=== PATIENT | male | born 1975 ===

== ENCOUNTER → 2020-10-11 14:06 | Outpatient (CLI) | payer BC, SELFPAY ==
--- NOTE | ~2020-10-11 | XR_ITS ---
EXAMINATION: XR lumbar spine 2-3V DATE: 10/11/2020 14:29 INDICATION: Right back pain TECHNIQUE: Anteroposterior and lateral views of the lumbar spine, and cone-down lateral view of the l umbosacral junction were obtained. COMPARISON: None. FINDINGS: Bone alignment is normal. There is no fracture. There is mild loss of intervertebral disc s pace height at L1-2 and L5-S1. The vertebral body heights are maintained. Small degenerative osteophy braeden project from the anterior endplates of multiple vertebral bodies. IMPRESSION: 1. Mild lumbar spondylosis without acute findings. Reviewed, dictated and finalized at location A. OR MASTER SCHEDULER
--- NOTE | ~2020-10-11 | XR_ITS ---
EXAMINATION: XR thoracic spine 3V DATE: 10/11/2020 14:29 INDICATION: Right-sided lower thoracic back pain TECHNIQUE: One AP, lateral and lateral swimmer's views of the thoracic spine were obtained. COMPARISON: None. FINDINGS: 15 degree levoscoliosis measured between T1 and T6. Minimal anterior wedging with <20% anterior verte bral body height loss at T8, T9 and T11. No evident sharply angulated cortex or linear lucency or scl erosis to suggest acute fracture. Multilevel mild to moderate disc height loss throughout the thoraci c spine, greatest at T7-T8. Lung volumes are small. Visualized lungs appear clear with no evident ple ural effusion or pneumothorax. Heart size is normal. IMPRESSION: 1. Mild upper thoracic levoscoliosis with mild to moderate spondylosis. 2. Age indeterminate, most likely chronic mild anterior wedging of a few lower thoracic vertebral bod ies. Reviewed, dictated and finalized at location A. UTER EQUIPMENT INSTALLER IMPRESSION: 1. Mild upper thoracic levoscoliosis with mild to moderate spondylosis. 2. Age indeterminate, most likely chronic mild anterior wedging of a few lower thoracic vertebral bodies.
== END ==
PROVIDERS: PCP Family Medicine Adolescent Medicine; Visit Provider Family Medicine Adolescent Medicine
DX: M54.6 Pain in thoracic spine (principal); M47.896 Other spondylosis, lumbar region
CPT/HCPCS: 72072; 72100

== ENCOUNTER → 2020-12-14 10:24 | Outpatient (CLI) | payer BC, SELFPAY ==
[2020-12-14 18:26] LABS: SARS-CoV-2 RNA PCR Positive
== END ==
PROVIDERS: PCP Family Medicine Adolescent Medicine; Visit Provider Family Medicine Adolescent Medicine
DX: U07.1 COVID-19 (principal)
CPT/HCPCS: C9803; U0003; U0005

== ENCOUNTER 2022-11-26 07:49 | Outpatient (CLI) | payer BC, SELFPAY ==
--- NOTE | 2022-11-26 08:32 | ECG_ITS ---
Measurements Intervals [place] Rate: 81 P: 12 ND: 179 QRS: -41 QRSD: 122 T: 12 QT: 365 QTc: 426 Interpretive Statements SINUS RHYTHM MARKED LEFT AXIS DEVIATION [QRS AXIS < -30] MILD INTRAVENTRICULAR CONDUCTION DELAY NO PREVIOUS ECG AVAILABLE FOR COMPARISON Electronically Signed On 11-26-2022 12:26:03 CDT by Salomón Quiles M.D.
[2022-11-26 09:11] LABS: Anion Gap 6 mmol/L (8-16); Blood Urea Nitrogen 18 mg/dL (9-20); Carbon Dioxide 29 mmol/L (22-30); Chloride 100 mmol/L (98-107); Estimated Glomerular Filt Rate > 60; Glucose 232 mg/dL (65-110); Potassium 3.8 mmol/L (3.4-5.0); Sodium 135 mmol/L (137-145)
== END 2022-11-26 07:50 | disposition home or self-care (01) ==
PROVIDERS: Anesthesiology; PCP Family Medicine Adolescent Medicine; Visit Provider Orthopaedic Surgery
DX: E11.9 Type 2 diabetes mellitus without complications (principal); I10 Essential (primary) hypertension; Z01.818 Encounter for other preprocedural examination; I45.9 Conduction disorder, unspecified
CPT/HCPCS: 36415; 80048; 93005

== ENCOUNTER 2022-11-29 01:27 | Day surgery (SDC) | payer BC, SELFPAY ==
[2022-11-19 16:39] VITALS: BMI 35.5
--- NOTE | 2022-11-19 17:17 | PC.NURSE ---
Report to the Outpatient Waiting Room, entrance under the green pavilion located off [facility], at 0830 on 11-29-22. Planned Procedure Time: 1030. Time changes happen often and if your time is changed the preop area will call you the afternoon before. - You and your visitor will be asked to self-screen and do not enter if you have any COVID symptoms. - Only one visitor is requested with a max of two and NO children visitors are allowed at this time. - The patient visitor may be requested to leave or wait in car when not with patient due to distancing restrictions. - A mask is optional within the hospital at this time. Patients may have clear liquids (water, carbonated beverages, clear teas, apple juice) until 3 hours prior to surgery with a maximum of 20 ounces. 0730 - No food from midnight until time of surgery - Infants may have breast milk until 4 hours before surgery, formula 6 hours prior to surgery. - Children will be allowed to drink immediately following surgery. If applicable, please bring a bottle or sippy cup to assist with drinking. Juice, water, soda, and popsicles are readily available. For infants on formula, please bring formula the day of surgery. Pacifiers are allowed. Take the following medications with a SIP of water the morning of surgery: None DO NOT STOP ANY OF YOUR OTHER PRESCRIPTION MEDICATIONS PRIOR TO SURGERY ?EXCEPT THE FOLLOWING Medications to discontinue per physician: N/A Please no make-up, nail armenian, hairspray, perfume, deodorant, or body powder the day of surgery. No jewelry (including any body piercings) or valuables the day of surgery, leave them at home. Please take a shower or bath the night before, or the morning of, surgery with an antibacterial soap. Wear comfortable, loose fitting clothing. A Button Down shirt is recommended Children are encouraged to wear pajamas. - Jewelry must be removed prior to entering the operating room. Rings and piercings that are not removed may be cut off. - The hospital will not accept responsibility for valuables. - Please leave all valuables, including medications, at home the day of surgery. If you are going home after surgery, a licensed regional company truck driver must drive you home. - NO public transportation without another adult if you receive anesthesia. - We recommend that an adult stay with you for 24 hours following discharge. - We also recommend that you do not drive, make important decision, drink alcoholic beverages, or take any drugs that were not prescribed by your health care provider for at least 24 hours after your discharge time. For Pediatric surgeries, we recommend two adults accompany the child home. Follow any additional instructions given to you from your surgeon. If you or anyone in your household have experienced Covid symptoms in the past week, please notify your surgeon or the nurse liaison at the phone number below for possible testing. Telephone instructions given to Duran Goodrich and asked if any additional questions and then verbalized understanding. Patient advised to call surgeon office or pre surgery nurse liaison [phone] if any additional questions.
--- NOTE | 2022-11-28 13:19 | WPDANESEPPF ---
Anes - Initial Pre Proc Eval Procedure: Operation Date: 11/29/22 10:30 Proposed Procedures p Left Shoulder Arthroscopy, Rotator Cuff Repair - Dev Joel MD Date/Time: 11/28/22 13:19 Surgeon: Dev Joel MD Pre Op Diagnosis: left shoulder partial thickness rot cuff tear Patient Data Age: 47 Gender: M Height: 1.8 m Weight: 115.67 kg Allergies Allergy/AdvReac Type Severity Reaction Status Date / Time No Known Allergies Allergy Verified 11/29/22 09:11 Home Medications Medication Instructions Recorded Confirmed Type testosterone 30 mg/actuation (1.5 2 pump topical DAILY #90 mL 04/02/22 11/29/22 Rx mL) transderm solution metered pump lisinopril 10 See Rx Instructions .Route 10/16/22 11/29/22 Rx mg-hydrochlorothiazide 12.5 mg .COMPLEX #90 tabs tablet metformin 500 mg tablet,extended See Rx Instructions .Route 10/16/22 11/29/22 Rx release 24 hr .COMPLEX #180 tabs oxycodone-acetaminophen 5 mg-325 1 - 2 tablet PO Q4-6H PRN pain #30 11/29/22 Rx mg tablet tabs Patient hx anesthesia problems: none Family hx anesthesia problems: none Results Review: All pre-operative results and documents have been reviewed as part of the pre-operative evaluation. [facility] Past Medical History Medical History (Updated 11/29/22 @ 09:21 by SONYA Nunn) Essential (primary) hypertension [place] syndrome History of pilonidal cyst Mixed hyperlipidemia Obesity (BMI 30-39.9) Type 2 diabetes mellitus without complications Surgical History Surgical History History of surgical removal of pilonidal cyst Family History Family History Other Acute myocardial infarction Grandparent Diabetes mellitus Father Diabetes mellitus Hypertension Other Asthma Social History Social History Smoking status: Current some day smoker Tobacco type: e-cigarettes/vaping Smokeless tobacco user: chewing tobacco Second hand tobacco smoke exposure: No Additional smoking assessment comments: used to chew tobacco doesn't anymore Alcohol intake: current Alcohol use details: occassionally; very seldomly per patient Substance use: never Substance use type: does not use Lack of Transportation: No Lack of Food: Never True Current Housing: Decline to Answer Concerned About Future Housing: Decline to Answer Difficulty Paying Gas/Electric Bills: Decline to Answer Difficulty Paying for Meds: Decline to Answer Currently Unemployed: Decline to Answer Education: Decline to Answer Difficulty w/ Childcare or Family Care: Decline to Answer Living arrangements: with family Occupation/Education: occupation Gender identity (if verbalized by the patient): Male Sexual Orientation (if Verbalized by the Patient): Straight or Heterosexual Spiritual care concerns: No Agree to blood products: Yes Anes - Eval Final PreProcedure Day of Procedure 11/28/22 13:19 Patient weight: obese Heart: regular rate and rhythm Lungs: clear to auscultation and normal air movement Airway: Mallampati scale class II Neurological: alert and oriented Last oral intake: >/= 8 hours ASA classification: III Emergent: no Anesthetic plan: proceed Anesthesia type and monitoring: general GIVS Results Review: All pre-operative results and documents have been reviewed as part of the pre-operative evaluation. Informed Consent: The patient's anesthetic plan and its attendant risks and benefits were discussed with the patient/family/POA. Questions were solicited and answers provided to the satisfaction of the patient/family/POA.
--- NOTE | 2022-11-28 13:20 | WPDANESPNB ---
Anes - Peripheral Nerve Block Date/Time: 11/28/22 13:20 I have discussed with the patient/family/POA the placement of a peripheral nerve block for post-operative pain management, including associated risks, benefits, complications, and side effects. Alternative methods of post-operative analgesia were detailed. Questions were solicited and answers provided to the satisfaction of the patient/family/POA. Time-Out: A pre-procedural Time-Out was completed immediately before starting the procedure and confirmed: Patient Identification, Site, Procedure, Patient Position and the Availability of Requisite Equipment. Clinical Indications: Acute post-operative pain management requested by the operative surgeon. Nerve Block Insertion Note Anes-nerve block: supraclavicular left Patient position: supine Skin prep: chlorhexidine Needle: 22 gauge, stimulating, insulated echogenic needle. Needle length: 80 mm Technique: ultrasound (in plane) Injectate: bupivacaine 0.25% with epi 5 mcg/ml (20cc) Observations: tolerated well Complications: none Procedure start time:: 945 Procedure end time:: 950
[2022-11-29] VITALS (9 sets, daily range): BP systolic 114–170; BP diastolic 57–97; PULSE 76–97; RESP 12–18; TEMP 36.5–36.6; O2SAT 95–99
--- NOTE | 2022-11-29 07:19 | WPDHPUPDATE1 ---
History and Physical Update Update Date/Time: 11/29/22 07:19 History and Physical has been reviewed, including an updated exam of the patient. There are NO changes in the patient's condition. Risks, benefits, and alternatives have been discussed and questions answered. Patient agrees to proceed with procedure.
[2022-11-29] MEDS: ACETAMINOPHEN 500 MG TABLET 1000 MG PO (08:50)
[2022-11-29] MEDS: KETOROLAC 15 MG/ML VIAL (*BKC) IV PUSH (08:50)
[2022-11-29] MEDS: LACTATED RINGERS 1,000 ML 30 ML IV CONT ×3 (08:50→13:58)
[2022-11-29 09:08] LABS: Glucose Point of Care 230 mg/dl (65-105)
[2022-11-29] MEDS: ceFAZolin 2 GM/D5W 50 ML 2 GM/50 ML BAG IVPB (10:08)
[2022-11-29] MEDS: EPINEPHrine HCL INJ 1 MG/ML AMPUL 2 MG IRRIGATION (11:18)
[2022-11-29 13:44] LABS: Glucose Point of Care 189 mg/dl (65-105)
--- NOTE | 2022-11-29 17:00 | W.PM.PROC2 ---
Procedure Note - Detailed Date of Procedure 11/29/22 Pre-op Diagnosis left shoulder partial thickness rot cuff tear Post-op Diagnosis Other (Left shoulder 1. Full thickness rotator cuff tear 2. Subacromial impingement) Procedure Performed Left shoulder 1. Arthroscopic rotator cuff repair 2. Arthroscopic subacromial decompression Surgeon Dev Joel MD Travel Pta Mita Armijo PA-C Anesthesia General and Regional ( interscalene block) Findings The supraspinatus had a full-thickness tear in the central portion of the tendon. Atypical tear with remaining tendon bridging and then fair amount of tendon remaining on the rotator cuff footprint. The partial articular tear closer to the footprint was completed and in continuity with the more medial tear. On the articular side the rotator cable was intact. Reduction of the central portion of the tear was not non anatomic, thus margin convergence was performed with 2 sutures at the most medial aspect of the tear. The remaining small to medium-sized tear was repaired with 2 bone tunnels and an Xbox configuration. The limbs of the margin convergence sutures were brought to a lateral knotless anchor for additional support of the repair. Evidence of subacromial impingement and prominence of the undersurface of the acromion was treated with acromioplasty and release of the CA ligament. The biceps tendon looked normal as did the remaining articular structures. There was significant hyperemia of the capsule but no contracture. Description of Procedure Preoperative antibiotics were given. An interscalene block was administered in the preoperative area. The patient was bought brought to the operating room. A general anesthetic was administered. The patient was carefully positioned in the beach chair position. The head and neck were carefully positioned. The non operative extremity was also carefully positioned. The shoulder was prepped and draped in the usual sterile fashion. Examination was performed. Standard posterior and anterior arthroscopic portals were established. Inflow achieved with the arthroscopic pump using saline and epinephrine. The glenohumeral joint was carefully inspected. The articular cartilage and labrum were normal as was the biceps and sub scapularis. The posterior cuff was healthy. The axillary pouch was benign. There was hyperemia of the capsule. High-grade partial tear with exposure of most of the rotator cuff footprint was observed. Attention was turned to the subacromial space. The bursa was significantly thickened. A complete bursectomy was performed. There was evidence of subacromial impingement. A modest acromioplasty was performed. The tear configuration was carefully assessed. It was interesting that there was a rent in tendon which was complete and then there was some intervening tissue intact. High-grade articular tear was palpated. The scope was placed back into the joint to confirm the anatomy. A spinal needle was placed through the thinnest portion of this partial articular portion of the tear and a PDS suture placed as a marker. Looking back at the subacromial space this marker was more posterior than initially anticipated. It was clear that in order to perform an appropriate repair, the partial articular portion of the tear would need to be completed and made contiguous with the full-thickness portion more medially. Care was taken to preserve as much of the intact tendon as possible. It appeared that the posterior fibers likely from the infraspinatus were tracking along the footprint laterally and anteriorly in a fairly anatomic fashion. At this point after assessing the mobility of the tear it was elected to perform margin convergence of the most medial aspect of the tear. Then 2 bone tunnels were created at the medial footprint. A suture Passer L was placed in the most posterior aspect of the cuff and the anterior aspect of the cuff. This area was mobil
== END 2022-11-29 15:30 | disposition home or self-care (01) ==
PROVIDERS: PCP Family Medicine Adolescent Medicine; Visit Provider Orthopaedic Surgery
PROC: (CPT 29805; principal; 2022-11-29 10:30)
DX: S46.012A Strain of muscle(s) and tendon(s) of the rotator cuff of left shoulder, initial encounter (principal); M75.42 Impingement syndrome of left shoulder; X50.0XXA Overexertion from strenuous movement or load, initial encounter; Y93.B3 Activity, free weights; G89.18 Other acute postprocedural pain; E78.2 Mixed hyperlipidemia; E11.9 Type 2 diabetes mellitus without complications; I10 Essential (primary) hypertension; E80.4 Gilbert syndrome; E66.9 Obesity, unspecified; Z68.35 Body mass index [BMI] 35.0-35.9, adult; F17.290 Nicotine dependence, other tobacco product, uncomplicated
CPT/HCPCS: 29827; 29826; 64415; 82948; A4565; A9270; C1713; J0171; J0330; J0690; J1885; J2250; J2405; J2704; J3010; J7120

== ENCOUNTER 2023-09-28 12:02 | Outpatient (CLI) | payer BC, SELFPAY ==
--- NOTE | ~2023-09-28 | XR_ITS ---
XR shoulder RT min 2V DATE: 09/28/2023 12:24 INDICATION: Right shoulder pain. Popped while working. TECHNIQUE: 4 views COMPARISON: None FINDINGS: There is mild degenerative change at the right acromioclavicular joint. Normal alignment at the acromioclavicular and glenohumeral joints. No fracture, dislocation, periosteal reaction or bone destruction or abnormal soft tissue calcification. IMPRESSION: Mild degenerative change at right acromioclavicular joint Reviewed, dictated and finalized at location B. ERSITY DEAN
== END 2023-09-28 12:03 | disposition home or self-care (01) ==
PROVIDERS: PCP Family Medicine Adolescent Medicine; Visit Provider Orthopaedic Surgery
DX: M19.011 Primary osteoarthritis, right shoulder (principal)
CPT/HCPCS: 73030

== ENCOUNTER 2023-12-26 12:49 | Outpatient (CLI) | payer BC, SELFPAY ==
--- NOTE | 2023-12-26 13:08 | ECG_ITS ---
SEE SCANNED COPY FOR CONFIRMED REPORT MTDD
[2023-12-26 13:54] LABS: Anion Gap 6 mmol/L (4-12); Blood Urea Nitrogen 20 mg/dL (9-20); Calcium 9.7 mg/dL (8.4-10.2); Carbon Dioxide 29 mmol/L (22-30); Chloride 102 mmol/L (98-107); Estimated Glomerular Filt Rate > 60; Glucose 137 mg/dL (65-110); Potassium 3.9 mmol/L (3.4-5.0); Sodium 137 mmol/L (137-145)
== END 2023-12-26 12:50 | disposition home or self-care (01) ==
LOC: ANHSURGERY 12:55
PROVIDERS: Anesthesiology; PCP Family Medicine Adolescent Medicine; Visit Provider Orthopaedic Surgery
DX: E11.9 Type 2 diabetes mellitus without complications (principal)
CPT/HCPCS: 36415; 80048; 93005

== ENCOUNTER 2023-12-31 00:20 | Day surgery (SDC) | payer BC, SELFPAY ==
[2023-12-24 14:41] VITALS: BMI 34.6
--- NOTE | 2023-12-24 14:44 | PC.NURSE ---
Report to the Outpatient Waiting Room, entrance under the green pavilion located off [facility], at time _0830_ on date _[id number]_. Planned Procedure Time: _1030_. Time changes happen often and if your time is changed the preop area will call you the afternoon before. - You and your visitor will be asked to self-screen and do not enter if you have any COVID symptoms. - A mask is optional within the hospital at this time. Patients may have clear liquids (water, carbonated beverages, clear teas, apple juice) until 3 hours prior to surgery with a maximum of 20 ounces. - No food from midnight until time of surgery Take the following medications with a SIP of water the morning of surgery: ____None DO NOT STOP ANY OF YOUR OTHER PRESCRIPTION MEDICATIONS PRIOR TO SURGERY ?EXCEPT THE FOLLOWING Medications to discontinue per physician None Date to take last dose Please no make-up, nail turkmen, hairspray, perfume, deodorant, or body powder the day of surgery. No jewelry (including any body piercings) or valuables the day of surgery, leave them at home. Please take a shower or bath the night before, or the morning of, surgery with an antibacterial soap. Wear comfortable, loose fitting clothing. - Jewelry must be removed prior to entering the operating room. Rings and piercings that are not removed may be cut off. - The hospital will not accept responsibility for valuables. - Please leave all valuables, including medications, at home the day of surgery. If you are going home after surgery, a licensed service car driver must drive you home. - NO public transportation without another adult if you receive anesthesia. - We recommend that an adult stay with you for 24 hours following discharge. - We also recommend that you do not drive, make important decision, drink alcoholic beverages, or take any drugs that were not prescribed by your health care provider for at least 24 hours after your discharge time. Follow any additional instructions given to you from your surgeon. If you or anyone in your household have experienced Covid symptoms in the past week, please notify your surgeon or the nurse liaison at the phone number below for possible testing. Telephone instructions given to _Charles__and asked if any additional questions and then verbalized understanding. Patient advised to call surgeon office or pre surgery nurse liaison [phone] if any additional questions.
[2023-12-31] VITALS (7 sets, daily range): BP systolic 93–157; BP diastolic 47–87; PULSE 47–91; RESP 14–16; TEMP 36.2–36.8; O2SAT 93–99
[2023-12-31] MEDS: ACETAMINOPHEN 500 MG TABLET 1000 MG PO (09:03)
[2023-12-31] MEDS: LACTATED RINGERS 1,000 ML 30 ML IV CONT ×2 (09:10→12:21)
[2023-12-31 09:13] LABS: Glucose Point of Care 158 mg/dl (65-105)
--- NOTE | 2023-12-31 09:25 | WPDANESEPPF ---
Anes - Initial Pre Proc Eval Procedure: Operation Date: 12/31/23 10:30 Proposed Procedures p Right Shoulder Arthroscopic Rotator Cuff Repair with Subacromial Decompression - Dev Joel MD Date/Time: 12/31/23 09:25 Surgeon: Dev Joel MD Pre Op Diagnosis: right shoulder partial rotator cuff tear Patient Data Age: 48 Gender: M Height: 1.8 m Weight: 112.7 kg Allergies Allergy/AdvReac Type Severity Reaction Status Date / Time No Known Allergies Allergy Verified 12/31/23 08:53 Home Medications Medication Instructions Recorded Confirmed Type testosterone 30 mg/actuation (1.5 2 pump topical DAILY #90 mL 05/29/23 12/31/23 Rx mL) transderm solution metered pump lisinopril 10 See Rx Instructions .Route 10/01/23 12/31/23 Rx mg-hydrochlorothiazide 12.5 mg .COMPLEX #90 tabs tablet melatonin 5 mg tablet 5 mg PO HS PRN Sleep 12/24/23 12/31/23 History metformin 500 mg tablet,extended See Rx Instructions .Route 12/26/23 12/31/23 Rx release 24 hr .COMPLEX #360 tabs hydrocodone 5 mg-acetaminophen 325 1 - 2 tablet PO Q4-6H PRN pain #30 12/31/23 Rx mg tablet tabs Laboratory Tests 12/31/23 09:10 POC Capillary Glucose 158 H mg/dl (65-105) Patient hx anesthesia problems: none Family hx anesthesia problems: none Results Review: All pre-operative results and documents have been reviewed as part of the pre-operative evaluation. [facility] Past Medical History Medical History Essential (primary) hypertension [place] syndrome History of pilonidal cyst Mixed hyperlipidemia Obesity (BMI 30-39.9) Type 2 diabetes mellitus without complications Surgical History Surgical History History of repair of left rotator cuff (11/2022) with Subacromial Decompression History of surgical removal of pilonidal cyst Family History Family History Other Acute myocardial infarction Grandparent Diabetes mellitus Father Diabetes mellitus Hypertension Other Asthma Social History Social History Smoking status: Current some day smoker Tobacco type: e-cigarettes/vaping Smokeless tobacco user: chewing tobacco Second hand tobacco smoke exposure: No Additional smoking assessment comments: used to chew tobacco doesn't anymore Alcohol intake: former Alcohol use details: occassionally; very seldomly per patient Substance use: never Substance use type: does not use Do You Feel Safe in your Home?: Yes Lack of Transportation: No Lack of Food: Never True Current Housing: I Have Housing Concerned About Future Housing: No Difficulty Paying Gas/Electric Bills: No Difficulty Paying for Meds: No Currently Unemployed: No Education: Grade School Difficulty w/ Childcare or Family Care: No Living arrangements: with family Occupation/Education: occupation Gender identity (if verbalized by the patient): Male Sexual Orientation (if Verbalized by the Patient): Straight or Heterosexual Spiritual care concerns: No Agree to blood products: Yes Anes - Eval Final PreProcedure Day of Procedure 12/31/23 09:25 Patient weight: obese Heart: regular rate and rhythm Lungs: decreased breath sounds Airway: Mallampati scale class II Neurological: alert and oriented Last oral intake: >/= 8 hours ASA classification: III Emergent: no Anesthetic plan: proceed Anesthesia type and monitoring: general ETT and standard monitoring Results Review: All pre-operative results and documents have been reviewed as part of the pre-operative evaluation. Informed Consent: The patient's anesthetic plan and its attendant risks and benefits were discussed with the patient/family/POA. Questions were solicited and answers provided to the satisfaction
--- NOTE | 2023-12-31 09:27 | WPDHPUPDATE1 ---
History and Physical Update Update Date/Time: 12/31/23 09:27 History and Physical has been reviewed, including an updated exam of the patient. There are NO changes in the patient's condition. Risks, benefits, and alternatives have been discussed and questions answered. Patient agrees to proceed with procedure.
[2023-12-31] MEDS: KETOROLAC 15 MG/ML VIAL (*BKC) IV PUSH (09:36)
[2023-12-31] MEDS: ceFAZolin 2 GM/D5W 50 ML 2 GM/50 ML BAG IVPB (10:05)
--- NOTE | 2023-12-31 10:05 | WPDANESPNB ---
Anes - Peripheral Nerve Block Date/Time: 12/31/23 10:05 I have discussed with the patient/family/POA the placement of a peripheral nerve block for post-operative pain management, including associated risks, benefits, complications, and side effects. Alternative methods of post-operative analgesia were detailed. Questions were solicited and answers provided to the satisfaction of the patient/family/POA. Time-Out: A pre-procedural Time-Out was completed immediately before starting the procedure and confirmed: Patient Identification, Site, Procedure, Patient Position and the Availability of Requisite Equipment. Clinical Indications: Acute post-operative pain management requested by the operative surgeon. Nerve Block Insertion Note Anes-nerve block: interscalene right Patient position: supine Skin prep: chlorhexidine Needle: 22 gauge, stimulating, insulated echogenic needle. Needle length: 50 mm Technique: nerve stimulation lost at (mA) and ultrasound Technique comment: mid2mg [id number] Injectate: bupivacaine 0.5% with epi 5 mcg/ml (30ml no epi) and dexamethasone (mg) (4) Observations: tolerated well Complications: none Procedure start time:: 952 Procedure end time:: 999
[2023-12-31] MEDS: EPINEPHrine HCL INJ 1 MG/ML AMPUL 3 MG IRRIGATION (11:09)
--- NOTE | 2023-12-31 11:21 | SUR.OPER ---
OR ready and hadoop architect in pre op at 0933. Patient required shave and block by anesthesia before transporting to OR
[2023-12-31 12:40] LABS: Glucose Point of Care 159 mg/dl (65-105)
--- NOTE | 2023-12-31 12:50 | SUR.PHASEI ---
1249: Simple mask removed.
--- NOTE | 2023-12-31 14:07 | W.PM.PROC2 ---
Procedure Note - Detailed Date of Procedure 12/31/23 Pre-op Diagnosis Right shoulder partial rotator cuff tear Post-op Diagnosis Other (1. Complete rotator cuff tear 2. Subacromial impingement 3. Degenerative labral tear) Procedure Performed Right shoulder 1. Arthroscopic rotator cuff repair 2. Arthroscopic subacromial decompression 3. Arthroscopic labral debridement Surgeon Dev Joel MD Rn Residential Mita Armijo PA-C Anesthesia General and Regional ( interscalene block) Findings The supraspinatus tear was more extensive than seen on the MRI. There was a complete component in the central aspect of the tendon. Fibers were reflected medially on top of the musculotendinous junction. Tissue was somewhat bulbous but was reducible to the medial aspect of the footprint. Single bone tunnel was created with 3 sutures passed into this tissue. The tear itself therefore was somewhat U shaped. Margin convergence sutures were used laterally x2. A horizontal mattress suture was used in the more posterior supraspinatus/infraspinatus aspect of the tear, and brought laterally to a SwiveLock. The repair appeared anatomic, with multiple points of fixation, and without undue tension. Description of Procedure Preoperative antibiotics were given. An interscalene block was administered in the preoperative area. The patient was bought brought to the operating room. A general anesthetic was administered. The patient was carefully positioned in the beach chair position. The head and neck were carefully positioned. The non operative extremity was also carefully positioned. The shoulder was prepped and draped in the usual sterile fashion. Examination was performed. Standard posterior and anterior arthroscopic portals were established. Inflow achieved with the arthroscopic pump using saline and epinephrine. The glenohumeral joint was carefully inspected. The articular cartilage was normal. There was fraying of the inferior labrum both anterior and posterior. This was treated with gentle debridement using arthroscopic shaver and the radiofrequency probe. The biceps and biceps anchor appeared normal. The subscapularis had minimal thickening at the upper border without any distinct tearing. The articular supraspinatus was clearly torn. This appeared to be high-grade partial until further investigation on the bursal side. Attention was turned to the subacromial space. The bursa was significantly prolific can thickened, and a complete bursectomy was performed. The rotator cuff and footprint were lightly debrided. A modest acromioplasty was performed. The tear configuration was carefully assessed. At this point, a bone tunnel were created at the medial footprint. The Trans-os technique was utilized. Three sutures were passed through the tunnel. All sutures were then passed through the cuff tissue. Two additional lateral margin convergence is were passed. Also a posterior medial horizontal mattress suture was passed. The sutures were tied arthroscopically. The mattress was brought laterally to a SwiveLock. The arthroscopic instruments were removed. The wounds were closed with 3-0 Monocryl subcuticular suture and steri strips. There were no complications. A sling was applied and the patient brought to the recovery room. Physician pharmacy innovation assistant, Mita Armijo PA-C, required for surgery; including patient positioning, draping, arthroscopic camera operation, maintaining instrument position, suture retrieval, wound closure, and dressing and sling placement. Implants Arthrex SwiveLock 4.75 anchor. Estimated Blood Loss 10 Pathology None sent Complications No immediate complications Condition Stable Disposition PACU [facility] Billing Surgery - Charge Forward: Surgery Billing
== END 2023-12-31 13:57 | disposition home or self-care (01) ==
PROVIDERS: PCP Family Medicine Adolescent Medicine; Visit Provider Orthopaedic Surgery
PROC: (CPT 29805; principal; 2023-12-31 10:30)
DX: S46.011A Strain of muscle(s) and tendon(s) of the rotator cuff of right shoulder, initial encounter (principal); M75.41 Impingement syndrome of right shoulder; M75.81 Other shoulder lesions, right shoulder; X50.0XXA Overexertion from strenuous movement or load, initial encounter; G89.18 Other acute postprocedural pain; E78.2 Mixed hyperlipidemia; I10 Essential (primary) hypertension; E11.9 Type 2 diabetes mellitus without complications; E80.4 Gilbert syndrome; E66.9 Obesity, unspecified; Z68.34 Body mass index [BMI] 34.0-34.9, adult; Z87.891 Personal history of nicotine dependence; Z79.84 Long term (current) use of oral hypoglycemic drugs; Z79.890 Hormone replacement therapy
CPT/HCPCS: 29827; 29826; 64415; 82948; A4565; A9270; C1713; J0171; J0690; J1100; J1885; J2250; J3010; J7120